=== PATIENT | male | born 1950 | race Caucasian/White ===

== ENCOUNTER 2021-04-29 08:29 | Day surgery (SDC) | payer OTHER ==
[~2021-04-29] VITALS: Ht 177.8 cm; Wt 88.0 kg
[2021-04-29 08:53] VITALS: BP 143/84
[2021-04-29] MEDS ORDERED: normal saline 1000ml 1,000 ML IV SCH (09:05)
[2021-04-29] MEDS ORDERED: ATOR20TA PO (09:15)
[2021-04-29] MEDS ORDERED: GABA300C PO (09:15)
[2021-04-29] MEDS ORDERED: METH-603 PO (09:15)
[2021-04-29] MEDS ORDERED: AMLO5TAB PO (09:15)
[2021-04-29] MEDS ORDERED: TIOT4MIS3 INH (09:15)
[2021-04-29] MEDS ORDERED: CHOL200012 PO (09:15)
[2021-04-29 09:40] LABS: BASOPHILS # (AUTO) 0.1 X10'3 (0-0.2); BASOPHILS % (AUTO) 1.3 % (0-1); EOSINOPHILS # (AUTO) 0.1 X10'3 (0-0.9); EOSINOPHILS % (AUTO) 1.4 % (0-6); HEMATOCRIT 39.6 % (42.0-52.0); HEMOGLOBIN 13.5 g/dl (14.0-17.9); LYMPHOCYTES # (AUTO) 1.1 X10'3 (1.1-4.8); LYMPHOCYTES % (AUTO) 16.5 % (21-51); MEAN CORPUSCULAR HEMOGLOBIN 30.6 PG (27.0-31.0); MEAN PLATELET VOLUME 7.4 FL (7.4-10.4); MONOCYTES # (AUTO) 0.7 X10'3 (0-0.9); MONOCYTES % (AUTO) 10.4 % (2-12); NEUTROPHILS # (AUTO) 4.6 X10'3 (1.8-7.7); NEUTROPHILS % (AUTO) 70.4 % (42-75); PLATELET COUNT 318 X10'3 (140-440); RED CELL DISTRIBUTION WIDTH 14.2 % (11.5-14.5); WHITE BLOOD COUNT 6.5 X10'3 (4.5-11.0)
[2021-04-29] MEDS ORDERED: midazolam 1 mg/ML 2ml injection ONE (10:12)
[2021-04-29] MEDS ORDERED: fentaNYL/PF 50MCG/1 ML 2ML syringe ONE (10:12)
[2021-04-29 10:16] VITALS: BP 145/61
[2021-04-29] MEDS ORDERED: sodium chloride 0.45% 1,000 ML IV SCH (10:20)
[2021-04-29 10:21] VITALS: BP 146/90
[2021-04-29 10:26] VITALS: BP 152/76
[2021-04-29 10:31] VITALS: BP 166/85
[2021-04-29 10:44] VITALS: BP 135/85
--- NOTE | 2021-04-29 11:00 | NUR ---
Pt iv dc'd by Stephy, student RN. with Rosanne BETTS cannula intact no s/s of bleeding or infection.
--- NOTE | 2021-04-29 11:04 | NUR ---
Procedure cancelled per MD. Pt back to room. VS stable as charted. Pt sitting up with breakfast tray, awaiting ride.
== END 2021-04-29 11:25 | disposition home or self-care (01) ==
LOC: SSTAY O 08:29
PROVIDERS: ATTEND Radiology Diagnostic Radiology
DX: R91.1 Solitary pulmonary nodule (principal); Z53.8 Procedure and treatment not carried out for other reasons; I10 Essential (primary) hypertension; N40.0 Benign prostatic hyperplasia without lower urinary tract symptoms; E55.9 Vitamin D deficiency, unspecified; Z85.46 Personal history of malignant neoplasm of prostate; Z88.5 Allergy status to narcotic agent; Z79.01 Long term (current) use of anticoagulants; Z79.899 Other long term (current) drug therapy
CPT/HCPCS: 71250; 85025; 85610; J2250; J3010; 71270